=== PATIENT | female | born 1980 | race Caucasian/White ===

== ENCOUNTER 2018-09-17 11:44 | Emergency (ER) | payer OTHER ==
--- NOTE | 2018-09-17 12:14 | EDPHY ---
General - History Smoking Status: Current some day smoker Time Seen by Provider: 09/17/18 12:02 Narrative: CHIEF COMPLAINT: Depressed, suicidal HISTORY OF PRESENT ILLNESS: Patient presents with complaints of suicidal thoughts and depression. She says that she has been "dealing with this my whole life," but symptoms have worsened over the past 2 weeks. She reports a plan to hang herself. She also reports a plan to overdose on pills. She denies any gestures or attempts today. She reports previous suicide attempt by overdose of pills several years ago. She has very flat affect and is very under talkative. She will not answer my questions fully otherwise. She has no associated complaints. No other modifying factors. PSYCHIATRIC DIAGNOSES: Denies PRIOR PSYCHIATRIC EVALUATIONS: None M1/DETAINER: 12:05 p.m., Dr. Holman REVIEW OF SYSTEMS: Ten systems reviewed and are negative unless otherwise noted in the HPI EXAMINATION General Appearance: Alert, no distress. Reserved Head: normocephalic, atraumatic Eyes: Pupils equal and round, no conjunctival pallor or injection Respiratory: Lungs are clear to auscultation Cardiovascular: Regular rate and rhythm Back: non-tender, no bony abnormalities Neurological: A&O, nonfocal, normal gait Skin: Warm and dry, no rash Extremities: Nontender, no pedal edema Psychiatric: Reserved with Depressed mood and flat affect. Reports a plan to hang herself by hanging or pill ingestion. She expresses intent to do so. Denies any substance use or abuse. DIFFERENTIAL DIAGNOSES: Including but not limited to depression, suicidal ideation MDM: 12:05 p.m. Suicidal thoughts plan to hang herself or ingest pills. She expresses intent to do so. She has a very flat affect and depressed mood. She has been placed on an M1 hold for suicidal thoughts and risk for self-harm. She is aware this. She is thus far cooperative. Laboratory studies be commands for medical clearance and evaluation. 2:00 p.m. Patient is medically cleared and pending evaluation. 3:15 p.m. Currently being evaluated by [facility]. 5:00 p.m. Patient has been evaluated and they are searching for inpatient placement. I discussed the case with Dr. Duenas at this time. She will assume care the patient. Please see her note for final disposition. SUPERVISION: Patient was independently examined, but I discussed the case with my secondary supervising physician Dr. Duenas (Darryl Tapia) I agree with the plan of care as documented. I am the secondary supervising physician. (Nathalie Duenas) - Objective Vital Signs: Initial Vital Signs Temperature (C) 36.5 C 09/17/18 11:44 Heart Rate 80 09/17/18 11:44 Respiratory Rate 13 09/17/18 11:44 Blood Pressure 133/94 H 09/17/18 11:44 O2 Sat (%) 97 09/17/18 11:44 O2 Delivery Mode Room Air Allergies/Adverse Reactions: No Known Allergies Allergy (Unverified 06/09/15 16:19) Home Medications: Medication Instructions Recorded NK [No Known Home Meds] 09/17/18 Laboratory Results: Laboratory Results 09/17/18 12:23 09/17/18 12:23 Departure - Departure Disposition: Other Psych, Not [place] Clinical Impression: Suicidal ideation, Severe major depression Condition: Fair Referrals: Ashwin Segura MD [Unknown] - As per Instructions Lance Mathur MD [Medical Doctor] - As per Instructions
[2018-09-17 13:04] LABS: PLATELET COUNT 263 10^3/uL (150-400)
--- NOTE | 2018-09-17 16:15 | ASMTTLCEVL ---
[facility] Evaluation - Basic Information Evaluation Start Date and 09/17/2018 01:55 PM Time Hospital Status Answers: M1 Hold 72-hr M1 Hold Start Date 09/17/2018 12:05 PM and Time Patient statement Notes: "I came in by ambulance. I had a panic attack at work. I was not feeling good at work and I was having thoughts of harm to self to either take pills or hang myself. Taking pills would be easier. Narrative Notes: Pt is a 37 year old, , female who presented to the [facility] ED with complaints of suicidal thoughts and depression. Pt had stated to ED provider she has experienced increased depression over the past 2 weeks. She stated a SI to either hang herself or overdose on pills. Affect was noted as very flat with slow speech. Pt had reported a prior suicide attempt a few years ago. Pts utox was negative for substances. Pt continues to express inability to keep herself safe if she would be discharged from the ED home. Recent stressors include a move, position change at work and break up with a boyfriend. Family also reported one of her sons has been acting out behaviorally. Diagnosis History Notes: Pt stated she has dealt with depression on and off throughout her adult life starting in her 20s. Pt stated over the past 2 weeks she has been increasingly depressed with recent thoughts of suicide. Sister and brother in law reported pt has a hx of wide mood swings. Pt is seeing a therapist, Fausto Chavez weekly for the past 11 months. Prior suicide attempts Notes: Pt stated about 1 year ago she made a suicide attempt by taking an overdose of pill but, chickened out. Pt did not receive any medical care following the start of this attempt. Prior hospitalizations Notes: Pt has no prior hx of past hospitalizations for mental health reasons. Treatment Responses Notes: Pt reported when she was taking the medications her symptoms were reduced. History of violence Notes: Pt denied any hx of violence either as a victim or towards others. Therapist: Fausto Chavez Medications (name, dosage, route, freq uency) Notes: Current reported medications include: Brandie tablets-1 tab PO HS, Multivitamin 1 each PO daily, Propylene Glycol Peg 400/Pf eye drops, Vitamin B and Levaquin 750 mg PO daily. Pt had been prescribed Zoloft and Wellbutrin in the past. She has been off prescribed medications for the past year. Allergies/Reaction Notes: No known allergies. Sleep Notes: Pt reported her sleep has been very sporadic from hardly sleeping to wanting to spend all her time in bed. This past week pt stated she has been sleeping very poorly. Appetite Notes: Pt stated her appetite has been diminished. Sister reported it appears pt has lost weight. Medical/Surgical history Notes: Pt denied any medical problems. Substance use history (frequency, intensity, his tory, duration) Notes: Pt described her drinking as social typically when she does drink she consumes about 1-2 drinks. Pt denied any hx of problematic drinking. Pt also gave a hx of marijuana use most recently about 1 time a week. There has been occasions in the past when she used heavily but not recently. Pt tried some other substances many years ago. Family composition Notes: Pt is the mother of 2 sons. She has been for about 2-3 years. Pt has 3 brothers and 1 sister all who live close by along with her parents. Pt described her family of origin as supportive however pt has a hx of isolating herself from family at times. Need for family Answers: Yes participation in patient's care Family psychiatric/substance abuse history Notes: There is some bipolar illness on the paternal side of the family. Developmental history Notes: Pt denied any developmental delays. She also denied any childhood dx of ADD or ADHD. Pt stated at age 15 she suffered a concussion while playing hockey resulting in headaches. Abuse concerns Answers: None Marital status/children Notes: Pt was about 2-3 years ago. She is the mother of 2 sons ages 17 and 18. Living situation Notes: Pt [facility] [place] [facility]. Custody is shared 50/50 with her former over their 2 children. Sexual history/orientation Notes: Pt recently ended a relationhip. She identifies herself as heterosexual. Peer support/family strengths Notes: Pt states she has some dedicated intermodal truck driver friends. Education level/history Notes: Pt completed her high school education. Work history Notes: Pt is employed with [employer]. 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 Notes: No hx Legal Notes: Pt denied any legal problems. Sabianist/Spiritual Notes: Pt denied any yazidism or spiritual beliefs that would impact her treatment. Leisure Notes: Pt stated she enjoys hiking, dancing and going to museums when she is feeling better. Collateral Notes: Collateral inform was obtained from pt.'s sister and brother in law. Sister reported concerns about pt and is in agreement with pt. not returning home due ot concerns for her safety. Sister stated pt had asked a week ago about whether sister has sleeping pills which she believes was the mode of suicide pt was considering. Sister also reported pt. has a hx of mood swings but most recently depression. Patient's strengths Answers: Good Friend to Others (Please select at least TWO strengths): Good Parent Intelligent Responsible/Dependable Supportive/Compassionate Supportive Family Willingness TLC Evaluation - Mental Status Exam Appearance: Answers: Appropriate Eye Contact: Answers: Avoiding Mood: Answers: Depressed Sad Affect: Answers: Apathetic Apprehensive Constricted Fearful Flat Indifferent Nervous Sad Behavior: Answers: Cooperative Fearful Speech: Answers: Clear Coherent Delayed Slowed Soft Thought Process: Answers: Organized Oriented Insight: Answers: Fair Judgement: Answers: Fair Manic Signs/Symptoms Answers: Distractibility Depression Answers: Difficulty Concentrating Signs/Symptoms: Diminished Interest Diminished Pleasure Flat Affect Hopelessness Psychomotor Retardation Sad Mood Withdrawn Worthlessness Anxiety Signs/Symptoms Answers: Generalized Anxiety Panic Attacks Hallucinations: Answers: None Current Stage of Change Answers: Contemplation Pt reported to have Answers: Yes suicidal/self-injuring ideation/behavior? Pt reported to be making Answers: Yes suicidal/self-injuring threats? Pt reported to have Answers: No aggression/assault ideation/behavior? Pt reported to be making Answers: No aggression/assault threats? Pt exhibits inability to Answers: No care for self/grave disability? Ideation/behavior is Answers: No chronic? Patient has a specific Answers: Yes plan? Pt has access to means to Answers: Yes execute the plan? Ideation involves Answers: Yes serious/lethal intent? Ideation has Answers: No delusional/hallucinatory content? History of Answers: Yes suicidal/self-injuring ideation, behavior, or threats? History of Answers: No aggressive/assaultive ideation, behavior, or threats? History of serious Answers: No physical harm to self/others while in treatment setting? [facility] Evaluation - Suicide/Homicide Risk Suicide Risk Factors: Answers: Agitation Anxiety/Panic, Severe Flat Affect Global Insomnia Hopelessness Impulsivity Lack of Sabianist Support Major Depression Organized Lethal Plan Prior Suicide Attempt(s) Rapid Mood Shifts Single None Current Suicidal Answers: Yes Ideation? Current Suicidal Ideation Answers: Yes in the Past 48 Hours? Current Suicidal Ideation Answers: No in the Past Month? Current Suicidal Answers: Yes Ideation, Worst Ever? Suicide Internal Answers: Absence of Psychosis Protective Factors: Suicide External Answers: Positive Therapeutic Protective Factors: Relationships Ranking of patient's Answers: Severe suicidal risk: Ranking of patient's Answers: Low homicidal risk: TLC Evaluation - Wrap-up AXIS I Diagnosis (include DSM-V and ICD-10 codes), must also be entered in [employer], which is the source of truth. Notes: R/O Bipolar I Disorder, current or most recent episode depressed, severe 296.53 (F31.4) Evaluation End Date and 09/17/2018 04:10 PM Time (HH:MM): Date Signed: 09/17/2018 04:15 PM Electronically Signed By:Vaishali Hong
--- NOTE | 2018-09-17 17:02 | ASMTLCPROG ---
Notes Note: Notes: [facility] starting bed search since [facility] called area hospitals. Status of availability includes: [facility]-no appropriate bed for pt, [facility]-no appropriate bed for pt., [facility]-no appropriate bed for pt., [facility]-no beds tonight, [place]-pt packet was sent for review, [facility]-no beds tonight, [facility]-packet sent for review, [facility]-packet sent for review. Date Signed: 09/17/2018 05:01 PM Electronically Signed By:Vaishali Hong
--- NOTE | 2018-09-17 18:16 | ASMTTCLDSP ---
T[facility] Discharge Disposition Disposition: Answers: Transfer Disposition Notes: Notes: In consultation with [facility] ED, Kalpesh Holman MD it was concurred that pt appears to meet 27-65 criteria requiring psychiatric hospitalization as pt appears to be at risk of harm to self due to a mental illness condition. Type of Hold: Answers: M1/72-hour Hold Hold initiated by: Answers: ED Physician For Transfers, Accepting [facility] Facility: For Transfers, Accepting Jorge Luis Bertrand MD Psychiatrist: Date Signed: 09/17/2018 06:15 PM Electronically Signed By:Stalin Rao
[2018-09-17 20:47] VITALS: BP 133/85
== END 2018-09-17 20:46 ==
LOC: EDUNIT# → EEVIPCON 11:44
PROC: GZ11ZZZ Psychological Tests, Personality and Behavioral (ICD-10-PCS; principal; 2018-09-17)
DX: R45.851 Suicidal ideations (principal); F32.2 Major depressive disorder, single episode, severe without psychotic features
CPT/HCPCS: 80305; G0480